=== PATIENT | female | born 1990 | race Caucasian/White ===

== ENCOUNTER → 2020-12-06 08:52 | Outpatient (BNVA) | payer BC, OTHER, SELFPAY | PROVIDERS: Family Provider Family Medicine; PCP Family Medicine; Referring Provider Family Medicine; Visit Provider Internal Medicine Rheumatology | DX: G62.9 Polyneuropathy, unspecified (principal); G45.3 Amaurosis fugax; R56.9 Unspecified convulsions; R32 Unspecified urinary incontinence | CPT/HCPCS: 99204 ==

== ENCOUNTER → 2021-01-17 07:53 | Outpatient (BNVA) | payer BC, OTHER, SELFPAY | PROVIDERS: Family Provider Family Medicine; PCP Family Medicine; Referring Provider Internal Medicine Rheumatology; Visit Provider Specialist | DX: R20.0 Anesthesia of skin (principal); R20.2 Paresthesia of skin; R56.9 Unspecified convulsions; N39.0 Urinary tract infection, site not specified; R55 Syncope and collapse; G43.711 Chronic migraine without aura, intractable, with status migrainosus | CPT/HCPCS: 95913; 99205 ==

== ENCOUNTER → 2021-01-31 15:55 | Outpatient (BNVA) | payer BC, OTHER, SELFPAY | PROVIDERS: Family Provider Family Medicine; PCP Family Medicine; Referring Provider Specialist; Visit Provider Nurse Practitioner Family | DX: N39.0 Urinary tract infection, site not specified (principal) | CPT/HCPCS: 81003; 87086 ==

== ENCOUNTER 2021-02-11 17:01 | Outpatient (CLI) | payer BC, OTHER, SELFPAY ==
--- NOTE | 2021-02-11 17:30 | MR_ITS ---
WS: [id number] MRI HEAD WITHOUT CONTRAST TECHNIQUE: Sagittal T1, T2 axial, T2 axial FLAIR, axial and coronal T1 images, axial susceptibility w eighted imaging, axial diffusion weighted images, and coronal T2 images were obtained. CLINICAL INFORMATION: R20.2 - Paresthesia of skin COMPARISON: None. FINDINGS: No evidence of restricted diffusion to suggest acute ischemia. Ventricular system and basal cisterns are patent. Normal posterior fossa. Normal vascular flow voids at the skull base. No extra-axial flui d collections. No evidence of mass or mass effect.Temporal lobes hippocampal formations are normal in appearance. No suspicious supratentorial or infratentorial signal abnormalities. No suspicious intracranial signa l abnormalities. Normal posterior fossa. Normal vascular flow voids at the skull base. Paranasal sinu ses and mastoid air cells well aerated. Normal corpus callosum and midline structures. No hemosiderin on susceptibly weighted images. No significant parenchymal volume loss. Normal optic chiasm and pituitary infundibulum. Cavernous sinuses and Meckel's cave normal in appeara nce. MR/MR head wo con* [id number] IMPRESSION: 1. No evidence of restricted diffusion to suggest acute ischemia. 2. No supra or infratentorial lesions. No suspicious intracranial signal abnor malities. 3. Corpus callosum is normal in appearance. No corpus callosal atrophy. 4. No hemosiderin on susceptibly weighted images. 5. Normal optic chiasm and pituitary infundibulum. 6. Temporal lobes and hippocampal formations are normal in appearance.
== END 2021-02-11 17:02 | disposition home or self-care (01) ==
PROVIDERS: PCP Family Medicine; Visit Provider Specialist
DX: R20.2 Paresthesia of skin (principal)
CPT/HCPCS: 70551

== ENCOUNTER → 2021-02-20 11:41 | Outpatient (BNVA) | payer BC, OTHER, SELFPAY | PROVIDERS: PCP Family Medicine; Visit Provider Specialist | DX: G43.711 Chronic migraine without aura, intractable, with status migrainosus (principal); N39.0 Urinary tract infection, site not specified; R20.2 Paresthesia of skin; R55 Syncope and collapse; Z71.89 Other specified counseling | CPT/HCPCS: 99214 ==

== ENCOUNTER → 2021-03-19 15:17 | Outpatient (BNVA) | payer BC, OTHER, SELFPAY | PROVIDERS: PCP Pediatrics; Visit Provider Urology | DX: N30.20 Other chronic cystitis without hematuria (principal) | CPT/HCPCS: 81003 ==